=== PATIENT | female | born 1965 | race Two or more races ===

== ENCOUNTER 2018-08-25 01:54 | Inpatient (IN) | payer OTHER ==
[~2018-08-25] VITALS: Ht 160 cm; Wt 86.6 kg
[2018-08-25] VITALS (13 sets, daily range): BP systolic 94–120; BP diastolic 58–83
[~2018-08-25 01:54] MED LIST: ESTR-33 PO; LISI20TA29 PO; VALA500T66 PO; ZOLP-350 PO
[2018-08-25] MEDS ORDERED: ROPIVACAINE 0.2% 20 ML VIAL ONE (06:29)
[2018-08-25] MEDS ORDERED: THROMBIN (BOVINE) 20,000 UNIT VIAL ONE (06:29)
[2018-08-25] MEDS ORDERED: SUGAMMADEX SOD 200 MG/2 ML SDV ONE (07:55)
[2018-08-25] MEDS ORDERED: LIDOCAINE MPF 1% 5 ML VIAL ONE (07:55)
[2018-08-25] MEDS ORDERED: ROCURONIUM BROM 10 MG/ML 10 ML ONE (07:55)
[2018-08-25] MEDS ORDERED: DEXAMETHASONE SOD 4 MG/ML VIAL ONE (07:55)
[2018-08-25] MEDS ORDERED: ONDANSETRON 4 MG/2 ML VIAL ONE (07:55)
[2018-08-25] MEDS ORDERED: fentaNYL CITR 250 MCG/5 ML AMP ONE (07:55)
[2018-08-25] MEDS ORDERED: PROPOFOL EMUL(*) 10MG/ML 20 ML 20 ML ONE (07:55)
[2018-08-25] MEDS ORDERED: HYDROmorphone HCL 2 MG/ML SDV ONE (09:17)
[2018-08-25] MEDS ORDERED: NORMOSOL R SOLN(*) 1000 ML BAG 1,000 ML IV PRN (09:25)
[2018-08-25] MEDS ORDERED: LIDOCAINE/SOD BICARB 8.4% SYR ID ONE (09:25)
[2018-08-25] MEDS ORDERED: MIDAZOLAM 2 MG/2 ML VIAL IVP PRN (09:25)
[2018-08-25] MEDS ORDERED: FAMOTIDINE 20 MG TAB PO ONE (09:25)
[2018-08-25] MEDS ORDERED: CLINDAMYCIN 900 MG/D5W 50 ML 50 ML IVPB ONE (09:25)
[2018-08-25] MEDS ORDERED: ACETAMINOPHEN 500 MG TAB PO ONE (09:25)
[2018-08-25] MEDS ORDERED: PREGABALIN 150 MG CAPSULE PO ONE (09:25)
[2018-08-25] MEDS ORDERED: PROPOFOL(*)1000 MG/100 ML VIAL 100 ML ONE (10:02)
[2018-08-25] MEDS ORDERED: KETAMINE HCL-NS 50 MG/5 ML SYR ONE (10:04)
[2018-08-25] MEDS ORDERED: fentaNYL CITR 100 MCG/2 ML AMP ONE ×2 (13:01→13:17)
[2018-08-25] MEDS ORDERED: MAGNESIUM HYDROXIDE* 30ML UDCP PO PRN (13:35)
[2018-08-25] MEDS ORDERED: diphenhydrAMINE 25 MG CAP PO PRN (13:35)
[2018-08-25] MEDS ORDERED: HYDROmorphone HCL 2 MG/ML SDV IVP PRN (13:35)
[2018-08-25] MEDS ORDERED: LR(*) 1000 ML BAG 1,000 ML IV PRN (13:35)
[2018-08-25] MEDS ORDERED: BISACODYL 10 MG SUPP PR PRN (13:35)
[2018-08-25] MEDS ORDERED: ACETAMINOPHEN(*)1000 MG/100 ML 100 ML IVPB PRN (13:35)
[2018-08-25] MEDS ORDERED: FLUSH 10 ML SYR IVP PRN (13:35)
[2018-08-25] MEDS ORDERED: oxyCODONE HCL 5 MG CAP PO PRN (13:35)
[2018-08-25] MEDS ORDERED: BENZOCAINE/MENTHOL 1 EACH LOZG PO PRN (13:35)
--- NOTE | 2018-08-25 13:35 | RADIOLOGY IMAGING REPORT ---
FACILITY: [facility] PATIENT NAME: Vicenta Longoria : 1965 MR: [id number] V: [id number] EXAM DATE: ORDERING PHYSICIAN: CRIS SHARP TECHNOLOGIST: [facility] Patient: Vicenta Longoria : 1965 Visit/Account:[id number] Date of Sevice: 08/25/2018 LUMBAR SPINE 1 VIEW Provided history: L4-L5 DISC HERNIATION/FUSION Additional pertinent history: none Two views obtained COMPARISON STUDIES: 04/22/18 FINDINGS: Initial localizing crosstable lateral view demonstrates a probe at the L4-5 level. Subsequent view i s after a PLIF at L4-5 with at least partial reduction of retrolisthesis and full protestant of heig ht of the disc. Screws course with the pedicles both levels. IMPRESSION: L4-5 PLIF. Report Dictated By: Raheem Currie MD at 08/25/2018 1:30 PM Report E-Signed By: Raheem Currie MD at 08/25/2018 1:32 PM WSN:[email or web address]
[2018-08-25] MEDS ORDERED: ZOLPIDEM TARTRATE 5 MG TAB PO PRN (14:10)
--- NOTE | 2018-08-25 14:12 | Hospitalist Progress Note ---
Subjective Progress Notes Subjective Patient seen post-op. She reports surgical site pain. She denies any CP/SOB/N/V. Reviewed PMHx (HTN, insomnia, JORGE on CPAP) and medications. Physical Exam Vital Signs Date Time Temp Pulse Resp B/P (MAP) Pulse Ox O2 Delivery O2 Flow Rate FiO2 08/25/18 13:56 97.6 68 12 120/69 (86) 99 Nasal Cannula 1.0 General Appearance: Alert, Awake Cardiovascular: Regular Rate and Rhythm Respiratory: Clear to Auscultation Assessment and Plan Problems: (1) JORGE on CPAP Status: Chronic Assessment & Plan: Will continue with her CPAP (6cm H2O pressure with auto ramp). (2) HTN (hypertension) Status: Chronic Assessment & Plan: Monitor BPs and resume/continue lisinopril 20mg daily as needed. (3) INSOMNIA, UNSPECIFIED Status: Chronic Assessment & Plan: She has been managed with Ambien 5-10mg qHS prn. Will continue with same regimen for now. MARVEL GRANADOS MD Aug 25, 2018 14:12
[2018-08-25] MEDS: CLINDAMYCIN 900 MG/D5W 50 ML 50 ML IVPB SCH (17:19)
[2018-08-25] MEDS: ONDANSETRON 4 MG/2 ML VIAL IVP PRN ×2 (18:04→22:17)
--- NOTE | 2018-08-25 19:30 | OPERATIVE REPORT 1 ---
EVENT DATE: August 25, 2018 SURGEON: Jeromy Sandoval MD ANESTHESIOLOGIST: Raul Tovar MD ANESTHESIA: General endotracheal anesthesia. SHEET METAL INSULATOR: Segundo Adler PA-C PREOPERATIVE DIAGNOSES 1. Lumbar spinal stenosis with radiculopathy and neurogenic claudication. 2. L4-L5 spondylolisthesis. POSTOPERATIVE DIAGNOSES 1. Lumbar spinal stenosis with radiculopathy and neurogenic claudication. 2. L4-L5 spondylolisthesis. PROCEDURES PERFORMED L4-L5 laminectomy and posterolateral instrumented fusion. INTRAVENOUS FLUIDS 1500 mL ESTIMATED BLOOD LOSS 150 mL IMPLANTS USED Pedicle screws 6.5 mm x 45 mm from [employer] times four, a 40 mm connecting karena from [employer], a 35 mm connecting karena from [employer], and four locking caps from [employer]. SPECIMENS None. DRAINS None. COMPLICATIONS None. DISPOSITION Post-Anesthesia Care Unit. INDICATIONS FOR SURGERY Ms. Longoria is a 53-year-old female evaluated for low back and radiating bilateral posterior thigh and lateral calf pain. These symptoms were worsening over time and did not improve with physical therapy, medications, etc. She ultimately underwent L5 epidural steroid injections which gave her about 85% relief in symptoms for about two or three days. The symptoms then returned to their previous level. Physical examination revealed a well-appearing, well- developed female in no acute distress. Her lower extremity strength was 5/5 throughout, and light touch sensation was intact in all dermatomes. Her imaging studies showed a grade 1 spondylolisthesis at L4-L5 with moderately severe spinal stenosis at that level. Secondary to ongoing symptoms and failure of nonsurgical care, Ms. Longoria was offered and elected to undergo L4-L5 laminectomy and posterolateral instrumented fusion. Prior to surgery, I explained in detail to the patient the possible risks of surgery. These risks include bleeding, infection, damage to surrounding structures, nerve root injury, spinal fluid leak, meningitis, need for further surgery, failure of instrumentation, persistent and/or worsening pain, , blindness, sexual dysfunction, autonomic nervous system dysfunction, and other unforeseen medical and surgical complications. An understanding that in general spinal surgery is more predictive at improving extremity discomfort than axial spine pain was stressed. DESCRIPTION OF PROCEDURE On the day of surgery, the patient was met in the preoperative hold area, and all questions were answered. The operative site was identified and marked by myself. The patient was brought in good condition to the operating room, and after succumbing to anesthesia, was positioned in the prone position on a Felipe table. All bony protuberances and soft tissues were well padded in the standard fashion. Care was taken to maintain appropriate perfusion pressures during anesthesia. Preoperative antibiotics were administered according to the appropriate timing schedule. At the conclusion of the procedure, sponge and needle counts were correct times two. A final timeout was undertaken by members of the operating team to confirm correct patient, correct levels, and correct surgery. An incision was then made over the intended surgical levels, and sharp dissection was carried out down to the posterior elements. Soft tissues were elevated off the posterior elements in a subperiosteal manner, and a lateral radiograph was obtained to ensure correct spinal levels. Subperiosteal dissection out along the lamina of L4 and L5 and then up the pars interarticularis to its intersection with the transverse process which was also cleared of all soft tissue dorsally. Thrombin-soaked sponges were then packed in the lateral gutters. Attention was turned to the laminectomy. A Leksell rongeur was used to remove the L4 lamina. The lamina was thinned down the midline, again with a Leksell rongeur. A Fox curette was used to undermine the superior insertion of the ligamentum flavum from the inferior aspect of the L4 lamina. A Sardis elevator was used prior to use of the Kerrison punch to ensure that all dural adhesions were freed up from surrounding bone adenopathy soft tissue. A #4 Kerrison rongeur was then used to perform a midline decompression all the way to the superior aspect of the L4 lamina. Bilateral lateral recess decompression was then performed with a combination of #3 and #4 Kerrisons. A significant amount of hypertrophied and calcific ligamentum flavum was removed, particularly from the left side. At the conclusion of the decompression, a Sardis elevator was used to check the thecal sac as well as the exiting nerve roots to ensure adequate decompression was achieved. Attention was then turned to placement of pedicle screws. Starting points for pedicle screws were identified bilaterally at L4 and bilaterally at L5. This was at approximately the junction of the pars interarticularis, the mid point of the transverse process, and the lateral border of the superior articular process. A 5 mm high-speed matt was used to decorticate the overlying cortical bone, and a Lenke-type probe was then advanced against resistance through the pedicle and into the vertebral body. A ball-tip feeler was used to palpate the pedicle superiorly, inferiorly, medially, and laterally to ensure absence of bony breaching. We probed distally to ensure absence of anterior breaching as well. Pedicle screws 6.5 mm x 45 mm were chosen and placed bilaterally at L4 and L5. These screws were tested with neurophysiologic monitoring to ensure absence of bony breaching, and they all tested greater than 30 mA. Connecting rods were then chosen, and we ended up using a 35 mm karena on the right and a 40 mm karena on the left. These were placed within the tulips, and locking caps were placed and tightened and then finally tightened. The entire wound was then irrigated with copious sterile saline solution. A high-speed matt was used to decorticate the transverse processes of L4 and L5 bilaterally. A combination of milled local bone and demineralized bone matrix was then packed into the lateral gutters overlying the transverse processes of L4 and L5 bilaterally. The wound was then closed in layers using interrupted sutures for the deep fascia, inverted interrupted sutures for the subcutaneous tissue, and a running subcuticular skin stitch. Sponge and needle counts were correct times two. POSTOPERATIVE CARE PLAN Ms. Longoria will remain in the hospital at least overnight, and once she clears physical therapy and is otherwise meeting discharge criteria, will be discharged home. She will follow up with me in clinic in two weeks' time for wound check and examination. RAMBO
[2018-08-25] MEDS: DOCUSATE SODIUM 100 MG CAP PO SCH (21:10)
[2018-08-25] MEDS: APAP/HYDROCODONE 325/5 TAB PO PRN (21:12)
[2018-08-26] MEDS: CLINDAMYCIN 900 MG/D5W 50 ML 50 ML IVPB SCH ×2 (01:05→09:07)
[2018-08-26] MEDS: APAP/HYDROCODONE 325/5 TAB PO PRN ×4 (01:05→20:04)
[2018-08-26 03:27] VITALS: BP 104/67
[2018-08-26] MEDS: DIAZEPAM 5 MG TAB PO PRN ×4 (03:40→21:51)
[2018-08-26 07:24] VITALS: BP 106/68
--- NOTE | 2018-08-26 08:47 | RADIOLOGY IMAGING REPORT ---
[place] [facility] [place] Vicenta Longoria : 1965 MR: [id number] V: [id number] EXAM DATE: ORDERING PHYSICIAN: CRIS SHARP TECHNOLOGIST: [place] [facility] [place] Patient: Vicenta Longoria : 1965 Visit/Account:[id number] Date of Sevice: 08/26/2018 Exam type: LUMBAR SPINE 2 OR 3 VIEW History: post op Comparison: Intraoperative lumbar spine series August 25, 2018. And MR lumbar spine April 28, 2018 Findings: There are five nonrib-bearing lumbar-type vertebral bodies present. Again noted are postsurgical abdias nges from posterior lumbar interbody fusion at L4-5 is a minimal 1 mm anterolisthesis of L4 with resp ect L5 which appears improved when compared to the prior MR of April 28, 2018 . The disc spaces appear well-preserved other than minimal disc space narrowing at L3-4. Soft tissu e gas is seen in the dorsal soft tissues of the lumbar spine consistent with recent surgery. There a re mild to moderate vascular calcifications in the abdominal aorta. Surgical clips identified in the left pelvis IMPRESSION: 1. Postsurgical changes from posterior lumbar interbody fusion at L4-5 described above Report Dictated By: Brina Rodrigez MD at 08/26/2018 8:38 AM Report E-Signed By: Brina Rodrigez MD at 08/26/2018 8:41 AM WSN:[email or web address]
[2018-08-26] MEDS: LISINOPRIL 20 MG TAB PO SCH (09:00)
[2018-08-26] MEDS: DOCUSATE SODIUM 100 MG CAP PO SCH ×2 (09:07→21:51)
[2018-08-26] MEDS: ACETAMINOPHEN 500 MG TAB PO PRN (10:12)
--- NOTE | 2018-08-26 11:31 | Hospitalist Progress Note ---
Subjective Progress Notes Subjective She has complaints of pain to the surgical site. She had no acute events overnight. Patient Complains of: Cardiovascular: No: Chest Pain Respiratory: No: Shortness of Breath Physical Exam Vital Signs Date Time Temp Pulse Resp B/P (MAP) Pulse Ox O2 Delivery O2 Flow Rate FiO2 08/26/18 07:36 95 08/26/18 07:26 Room Air 08/26/18 07:24 98.7 74 12 106/68 (81) 08/25/18 22:21 1.0 Intake and Output 08/26/18 06:59 Intake Total 2970 ml Output Total 150 ml Balance 2820 ml Intake Oral 1120 ml IV Total 1850 ml Output Estimated Blood Loss 150 ml # Voids 5 General Appearance: Alert, Awake, No Acute Distress, Afebrile Neuro: No Gross deficits Cardiovascular: Regular Rate and Rhythm Respiratory: No Respiratory Distress, Clear to Auscultation GI: Soft and Non-Tender Psych: Alert & Oriented X3, Appropriate Mood & Affect Assessment and Plan Problems: (1) JORGE on CPAP Status: Chronic Assessment & Plan: Will continue with her CPAP (6cm H2O pressure with auto ramp). (2) HTN (hypertension) Status: Chronic Assessment & Plan: Monitor BPs and resume/continue lisinopril 20mg daily as needed. (3) INSOMNIA, UNSPECIFIED Status: Chronic Assessment & Plan: She has been managed with Ambien 5-10mg qHS prn. Will continue with same regimen for now. Exam Sepsis Risk: No Definite Risk PRAVEENA ABAD Aug 26, 2018 11:31
[2018-08-26 12:24] VITALS: Ht 160 cm; Wt 86.6 kg
[2018-08-26 19:37] VITALS: BP 112/71
[2018-08-27] MEDS: APAP/HYDROCODONE 325/5 TAB PO PRN (02:30)
[2018-08-27] MEDS: DIAZEPAM 5 MG TAB PO PRN ×2 (02:30→10:02)
[2018-08-27] MEDS ORDERED: LOR5/325 PO (08:21)
[2018-08-27] MEDS ORDERED: DOCU240C84 PO (08:22)
[2018-08-27] MEDS ORDERED: DIA5 PO (08:22)
[2018-08-27] MEDS: DOCUSATE SODIUM 100 MG CAP PO SCH (08:54)
[2018-08-27] MEDS: LISINOPRIL 20 MG TAB PO SCH (08:54)
[2018-08-27 09:25] VITALS: BP 116/77
[2018-08-27] MEDS: ACETAMINOPHEN 500 MG TAB PO PRN (09:58)
--- NOTE | 2018-08-27 10:27 | Hospitalist Progress Note ---
Subjective Progress Notes Subjective She has complaints of nasal congestion, post nasal drip. She reports she felt like she was getting cold prior to surgery, but has since worsened since admission. Patient Complains of: Cardiovascular: No: Chest Pain Respiratory: Cough, Congestion; No: Shortness of Breath Physical Exam Vital Signs Date Time Temp Pulse Resp B/P (MAP) Pulse Ox O2 Delivery O2 Flow Rate FiO2 08/27/18 09:25 16 116/77 (90) 90 Room Air 08/27/18 08:55 100.8 08/26/18 19:37 94 08/26/18 19:37 1.0 Intake and Output 08/27/18 07:00 Intake Total 240 ml Balance 240 ml Intake Oral 240 ml # Voids 3 General Appearance: Alert Cardiovascular: Regular Rate and Rhythm Respiratory: No Respiratory Distress, Clear to Auscultation, Other (cough dry, minimal production with cough) GI: Soft and Non-Tender Extremities: Warm, Perfused; No Edema Psych: Alert & Oriented X3, Appropriate Mood & Affect Assessment and Plan Problems: (1) JORGE on CPAP Status: Chronic Assessment & Plan: Will continue with her CPAP (6cm H2O pressure with auto ramp). (2) HTN (hypertension) Status: Chronic Assessment & Plan: Monitor BPs and resume/continue lisinopril 20mg daily as needed. (3) INSOMNIA, UNSPECIFIED Status: Chronic Assessment & Plan: She has been managed with Ambien 5-10mg qHS prn. Will continue with same regimen for now. (4) Cough Status: Acute Assessment & Plan: She has cough and slight temperature elevation this morning. She will get a chest x-ray this morning. Exam Sepsis Risk: No Definite Risk PRAVEENA ABAD [employer] Aug 27, 2018 10:27
--- NOTE | 2018-08-27 10:30 | RADIOLOGY IMAGING REPORT ---
FACILITY: [facility] PATIENT NAME: Vicenta Longoria : 1965 MR: [id number] V: [id number] EXAM DATE: ORDERING PHYSICIAN: PRAVEENA ABAD TECHNOLOGIST: Location: [facility] - [place] Patient: Vicenta Longoria : 1965 Visit/Account:[id number] Date of Sevice: 08/27/2018 2 VIEWS CHEST INDICATION: Cough and fever COMPARISON: None available FINDINGS: Heart size within normal limits. There is no focal infiltrate or lobar consolidation. There is no pneumothorax or pleural effusion. Mild degenerative changes within the thoracic spine. IMPRESSION: 1. No acute cardiopulmonary process. Report Dictated By: Hamilton Sims MD at 08/27/2018 10:26 AM Report E-Signed By: Hamilton Sims MD at 08/27/2018 10:26 AM WSN:[email or web address]
== END 2018-08-27 12:00 | disposition home or self-care (01) | DRG 460 ==
LOC: OR 01:54 → MED 13:50
PROVIDERS: ADMIT Orthopaedic Surgery; ATTEND Orthopaedic Surgery
PROC: 01NB0ZZ Release Lumbar Nerve, Open Approach (ICD-10-PCS; 2018-08-25)
PROC: 5A09357 Assistance with Respiratory Ventilation, Less than 24 Consecutive Hours, Continuous Positive Airway Pressure (ICD-10-PCS; 2018-08-25)
PROC: 0SG0071 Fusion of Lumbar Vertebral Joint with Autologous Tissue Substitute, Posterior Approach, Posterior Column, Open Approach (ICD-10-PCS; principal; 2018-08-25 10:07)
DX: M48.062 Spinal stenosis, lumbar region with neurogenic claudication (principal); M43.16 Spondylolisthesis, lumbar region; M54.16 Radiculopathy, lumbar region; I10 Essential (primary) hypertension; G47.33 Obstructive sleep apnea (adult) (pediatric); K21.9 Gastro-esophageal reflux disease without esophagitis; G47.00 Insomnia, unspecified; Z87.891 Personal history of nicotine dependence; Z90.710 Acquired absence of both cervix and uterus
CPT/HCPCS: 36415; 71046; 72020; 72100; 86850; 86900; 86901; 97161; C1713; J1100; J1170; J2001; J2250; J2405; J2704; J2795; J3010; J3490